=== PATIENT | female | born 1985 | race Caucasian/White ===

== ENCOUNTER 2024-03-03 13:49 | Outpatient (CLI) | payer OTHER, SELFPAY ==
--- NOTE | ~2024-03-03 | MR_ITS ---
EXAMINATION: MR cervical spine wo con DATE: 03/03/2024 14:30 INDICATION: Cervical radiculopathy. Left neck pain. Left shoulder and arm pain. TECHNIQUE: Magnetic resonance imaging (MRI) of the cervical spine was performed without intravenous c ontrast. COMPARISON: None FINDINGS: There is kyphosis of cervical spine. Vertebral body heights are normal. There is mildly dec reased disc height at C5-C6. The spinal cord signal intensity is normal. The following disc levels ar e specifically discussed: C2-C3: The disc does not extend beyond the endplate margin. There is no uncovertebral joint osteoarth ritis. There is moderate right and mild left facet joint osteoarthritis. There is no neural foraminal stenosis. There is no central canal stenosis. C3-C4: There is a right central protrusion. There is mild bilateral uncovertebral joint osteoarthriti s. There is mild bilateral facet joint osteoarthritis. There is no neural foraminal stenosis. There i s mild central canal stenosis with ventral indentation of the spinal cord. C4-C5: There is a left central protrusion. There is no uncovertebral joint osteoarthritis. There is s evere right and mild left facet joint osteoarthritis. There is no neural foraminal stenosis. There is mild central canal stenosis with ventral indentation of the spinal cord. C5-C6: There is a central extrusion. There is mild bilateral uncovertebral joint osteoarthritis. Ther e is moderate right facet joint osteoarthritis. There is no neural foraminal stenosis. There is mild central canal stenosis with ventral indentation of the spinal cord. C6-C7: The disc does not extend beyond the endplate margin. There is no uncovertebral joint osteoarth ritis. There is mild bilateral facet joint osteoarthritis. There is no neural foraminal stenosis. The re is no central canal stenosis. C7-T1: The disc does not extend beyond the endplate margin. There is no uncovertebral joint osteoarth ritis. There is moderate right and mild left facet joint osteoarthritis. There is no neural foraminal stenosis. There is no central canal stenosis. IMPRESSION: 1. Mild cervical spondylosis. Reviewed, dictated and finalized at location A.
== END 2024-03-03 13:50 ==
LOC: GOSHIMG 13:53
PROVIDERS: PCP Family Medicine; Visit Provider Internal Medicine
DX: M47.22 Other spondylosis with radiculopathy, cervical region (principal)
CPT/HCPCS: 72141

== ENCOUNTER 2024-10-23 14:01 | Outpatient (CLI) | payer OTHER, SELFPAY ==
--- NOTE | ~2024-10-23 | MM_ITS ---
EXAMINATION: MM screening jessica BI w juan HISTORY: Screening TECHNIQUE: Craniocaudal and mediolateral oblique 3-D tomosynthesis images were obtained and synthetic 2-D images were generated. CAD analysis was submitted and interpreted. COMPARISON: No prior mammogram is available for comparison at this institution. BREAST PARENCHYMAL COMPOSITION: Dense: The breasts are heterogeneously dense, which may obscure small masses FINDINGS: There is no evidence of suspicious mass, calcification, or architectural distortion to sugg est malignancy in either breast. There has been no suspicious interval change. IMPRESSION: 1. No mammographic evidence of malignancy. 2. Recommend routine screening mammography in one year. BI-RADS Category 1: Negative Reviewed, dictated and finalized at location A.
== END 2024-10-23 14:02 | disposition home or self-care (01) ==
LOC: MICIMG 14:03
PROVIDERS: PCP Student in an Organized Health Care Education/Training Program; Visit Provider Student in an Organized Health Care Education/Training Program
DX: Z12.31 Encounter for screening mammogram for malignant neoplasm of breast (principal)
CPT/HCPCS: 77063; 77067

== ENCOUNTER 2025-04-16 07:14 | Outpatient (CLI) | payer OTHER, SELFPAY ==
--- NOTE | ~2025-04-16 | MR_ITS ---
EXAMINATION: MR cervical spine wo con DATE: 04/16/2025 07:47 INDICATION: Neck pain. Cervical radiculopathy. TECHNIQUE: Magnetic resonance imaging (MRI) of the cervical spine was performed without intravenous contrast. COMPARISON: Cervical spine MRI 03/03/2024 FINDINGS: There is kyphosis of cervical spine. Vertebral body heights are normal. There is mildly decreased disc height at C5-C6. The spinal cord signal intensity is normal. The following disc levels are specifically discussed: C2-C3: The disc does not extend beyond the endplate margin. There is no uncovertebral joint osteoarthritis. There is moderate right and mild left facet joint osteoarthritis. There is no neural foraminal stenosis. There is no central canal stenosis. C3-C4: There is a central protrusion. There is mild bilateral uncovertebral joint osteoarthritis. There is moderate bilateral facet joint osteoarthritis. There is no neural foraminal stenosis. There is no central canal stenosis. C4-C5: There is a central protrusion. There is mild right uncovertebral joint osteoarthritis. There is moderate bilateral facet joint osteoarthritis. There is mild right neural foraminal stenosis. There is mild central canal stenosis. C5-C6: There is a left central extrusion. There is mild bilateral uncovertebral joint osteoarthritis. There is severe right and mild left facet joint osteoarthritis. There is mild left neural foraminal stenosis. There is mild central canal stenosis. C6-C7: There is a central protrusion. There is mild right and moderate left uncovertebral joint osteoarthritis. There is mild right and moderate left facet joint osteoarthritis. There is mild left neural foraminal stenosis. There is mild central canal stenosis. C7-T1: The disc does not extend beyond the endplate margin. There is moderate bilateral uncovertebral joint osteoarthritis. There is mild right facet joint osteoarthritis. There is no neural foraminal stenosis. There is no central canal stenosis. IMPRESSION: 1. Mild cervical spondylosis, stable from 03/03/2024. Reviewed, dictated and finalized at location E.
== END 2025-04-16 07:15 | disposition home or self-care (01) ==
PROVIDERS: PCP Internal Medicine; Visit Provider Nurse Practitioner
DX: M47.812 Spondylosis without myelopathy or radiculopathy, cervical region (principal)
CPT/HCPCS: 72141